=== PATIENT | female | born 1995 | race Caucasian/White ===

== ENCOUNTER 2019-03-26 04:17 | Inpatient (IN) | payer BC ==
[~2019-03-26] VITALS: Ht 177.8 cm; Wt 49.9 kg
--- NOTE | 2019-03-26 04:42 | NUR ---
BIB FAMILY S/P SYNCOPY AND FALL. WITH L FOREHEAD LACERATION W/ MINIMAL BLEEDING. NO PMH EXCEPT ANXIETY/ DEPRESSION. ASSISTED TO GET IN BED. VSS. PLACED ON A MONITOR, WILL CONT TO MONITOR ,
[2019-03-26] MEDS ORDERED: ONDANSETRON HCL/PF 4 MG/2 ML VIAL ONE ×2 (04:48→09:16)
--- NOTE | 2019-03-26 04:56 | NUR ---
20g iv started on LAC. blood drawn and sent to the lab. at the bed side
[2019-03-26 04:58] LABS: BASOPHILS # (AUTO) 0.1 /CMM (0.0-0.2); BASOPHILS % (AUTO) 0.2 % (0.0-2.0); EOSINOPHILS % (AUTO) 1.1 % (0.0-6.0); HEMATOCRIT 33 % (33-45); HEMOGLOBIN 10.8 g/dL (11.5-14.8); LYMPHOCYTES # (AUTO) 2.1 /CMM (0.8-4.8); LYMPHOCYTES % (AUTO) 8.7 % (20.0-44.0); MEAN CORPUSCULAR HGB CONC 33 g/dl (31.0-36.0); MEAN CORPUSCULAR VOLUME 91 fL (82-100); MONOCYTES # (AUTO) 1.1 /CMM (0.1-1.30); MONOCYTES % (AUTO) 4.7 % (2.0-12.0); NEUTROPHILS # (AUTO) 20.3 /CMM (1.8-8.9); NEUTROPHILS % (AUTO) 85.3 % (43.0-81.0); PLATELET COUNT (AUTO) 271 /CMM (150-450); WHITE BLOOD COUNT (AUTO) 23.9 K/uL (4.3-11.0)
[2019-03-26] MEDS ORDERED: TDAP [DIPH/PERTUSSIS/TET] 0.5 ML VIAL IM ONE ×2 (05:00→05:08)
[2019-03-26] MEDS ORDERED: ONDANSETRON HCL/PF 4 MG/2 ML VIAL IVP ONE ×2 (05:00→09:30)
[2019-03-26] MEDS ORDERED: IV NS 0.9% 1,000 ML BAG IV ONE ×2 (05:00→09:00)
[2019-03-26] MEDS ORDERED: CEFAZOLIN 1 GM in IV D5W 50 ML IV ONE (05:00)
[2019-03-26] MEDS ORDERED: CEFTRIAXONE 1 G VIAL ONE (05:01)
[2019-03-26] MEDS ORDERED: CEFTRIAXONE 1GM BAG (ER ONLY) 50 ML IV ONE (05:02)
[2019-03-26 05:04] LABS: CALCIUM, SERUM 9.2 mg/dL (8.5-10.1); CREATININE 0.9 mg/dL (0.6-1.3); POTASSIUM 3.7 mmol/L (3.5-5.1)
[2019-03-26 05:10] LABS: ALBUMIN 3.6 g/dL (3.4-5.0); BILIRUBIN,DIRECT 0.1 mg/dL (0.0-0.2); BILIRUBIN,TOTAL 0.5 mg/dL (0.2-1.0); TOTAL PROTEIN, SERUM 6.5 g/dL (6.4-8.2)
[2019-03-26] MEDS ORDERED: CEFTRIAXONE 1 G in IV D5W 50 ML IV ONE (05:30)
[2019-03-26] MEDS ORDERED: IV NS 0.9% 250 ML IV ONE (05:36)
[2019-03-26] MEDS ORDERED: CT SWABBABLE VALVE TRANS SET 1 EA INFUS.SET MC ONE (05:36)
[2019-03-26] MEDS ORDERED: IOHEXOL-300 100 ML VIAL IV ONE (05:36)
--- NOTE | 2019-03-26 05:49 | NUR ---
BACK FROM CT IN STABLE CONDITION
--- NOTE | 2019-03-26 06:55 | NUR ---
Patient is resting comfortably in . VSS. WILL CONT TO MONITOR ,
--- NOTE | 2019-03-26 07:03 | NUR ---
AT THE BED SIDE TALKING TO THE PT/ FAMILY
[2019-03-26] MEDS ORDERED: TRAZ-182 PO (08:29)
[2019-03-26] MEDS ORDERED: BUPR300T52 PO (08:29)
[2019-03-26] MEDS ORDERED: ESCI20TA PO (08:29)
--- NOTE | 2019-03-26 08:30 | NUR ---
PATIENT RESTING, MOM AT BEDSIDE, NO DISTRESS NOTED.
[2019-03-26 09:00] LABS: BASOPHILS % (AUTO) 0.3 % (0.0-2.0); EOSINOPHILS % (AUTO) 0.1 % (0.0-6.0); HEMATOCRIT 27 % (33-45); HEMOGLOBIN 9.2 g/dL (11.5-14.8); LYMPHOCYTES # (AUTO) 0.8 /CMM (0.8-4.8); LYMPHOCYTES % (AUTO) 7.6 % (20.0-44.0); MEAN CORPUSCULAR HGB CONC 34 g/dl (31.0-36.0); MEAN CORPUSCULAR VOLUME 90 fL (82-100); MONOCYTES # (AUTO) 0.4 /CMM (0.1-1.30); MONOCYTES % (AUTO) 3.6 % (2.0-12.0); NEUTROPHILS # (AUTO) 9.4 /CMM (1.8-8.9); NEUTROPHILS % (AUTO) 88.4 % (43.0-81.0); PLATELET COUNT (AUTO) 195 /CMM (150-450); RED BLOOD CELL COUNT(AUTO) 3.04 MIL/uL (4.0-5.2); WHITE BLOOD COUNT (AUTO) 10.7 K/uL (4.3-11.0)
--- NOTE | 2019-03-26 09:00 | NUR ---
Called [facility] at [phone] option 5, Spoke with Marco and requsted a transfer to patient's [facility]. Marco requested to fax Facesheet, ED Notes, Imaging, and Labs to [phone]. Faxed as requested with confirmation [id number] at 09:06am. Ref # [id number] 03/26/2019 09:00am Pending Call back from KARI
[2019-03-26] MEDS ORDERED: MORPHINE SULFATE INJ 4 MG/ML DISP.SYRIN ONE (09:16)
--- NOTE | 2019-03-26 09:29 | NUR ---
Called [facility] at [phone] and spoke with Sherwin. Sherwin transferred me ro the (didn't agree to give me their direct number). Left a message on a voice mail to Jaonn PIERCE to call me back.
[2019-03-26] MEDS ORDERED: MORPHINE SULFATE INJ 2 MG/ML DISP.SYRIN IV ONE (09:30)
--- NOTE | 2019-03-26 10:30 | NUR ---
Called transferred center at [facility] and spoke with House supervision Alyse at [phone] and requested a bed meanwhile waiting to the insurance CM to call me back. Requsted a Tele bed. Per Firefighting Equipment Specialist, they don't have any bed available and acceptance is subject to Insurance approval and acceptance physician. Faxed Facesheet and ED Notes to warehouse foreman at [phone]
--- NOTE | 2019-03-26 10:45 | NUR ---
PATIENT IN NAD, VSS, NEEDS ATTENDED AND MET, CALL LIGHT WITHIN REACH.
--- NOTE | 2019-03-26 11:05 | NUR ---
Called MCKENNA Desai CM workers' compensation claims supervisor, at [facility] to request approval for the transfer. Left a message
--- NOTE | 2019-03-26 11:25 | NUR ---
Received a call back from Alyse, commercial housekeeper at [facility]. She reviewed clinicals and she will give it to one of he CM. No bed is available yet but patient is on the list. Still Pending insurance approval for the transfer
--- NOTE | 2019-03-26 11:45 | NUR ---
Received a call nack from MCKENNA Desai CM ward supervisor at [phone]. Per Lloyd, he is approving the transfer to [facility]. He will call the Nurse Stock Preparer at [place]. EVELIO initiated and pending a call back to JOSÉ ANTONIO Hill MD.
--- NOTE | 2019-03-26 11:50 | NUR ---
Dr. Hodge made aware of the plan. Pending MD2MD
--- NOTE | 2019-03-26 11:58 | NUR ---
Called Nursing Vaccine Key Customer Leader at [facility] @ [phone], I advised her that Lloyd, IP CM Vaccine Key Customer Leader at [facility], will call her for the authorization and bed. I provided the nurse medical transcription supervisor with Lloyd direct number and asked her to call me if she doesn't hear back from him in the next 30 min
--- NOTE | 2019-03-26 12:46 | NUR ---
DR. WAN SPOKE WITH ACCEPTING MD AT [facility], DR. LUO.
--- NOTE | 2019-03-26 12:56 | NUR ---
Received a call from MCKENNA Desai CM at [facility]. EVELIO Completed - Per DR. LUO, patient is not stable to be transferred. Spoke with Dr Wan to admit the patient. DR WAN and I spoke with the patient and the patient's mom at bedside and both agreed to be admitted.
[2019-03-26 13:01] LABS: BASOPHILS % (AUTO) 0.4 % (0.0-2.0); EOSINOPHILS % (AUTO) 0.6 % (0.0-6.0); HEMATOCRIT 26 % (33-45); HEMOGLOBIN 8.7 g/dL (11.5-14.8); LYMPHOCYTES # (AUTO) 1.9 /CMM (0.8-4.8); LYMPHOCYTES % (AUTO) 18.9 % (20.0-44.0); MEAN CORPUSCULAR HGB CONC 34 g/dl (31.0-36.0); MEAN CORPUSCULAR VOLUME 90 fL (82-100); MONOCYTES # (AUTO) 0.8 /CMM (0.1-1.30); MONOCYTES % (AUTO) 7.9 % (2.0-12.0); NEUTROPHILS # (AUTO) 7.4 /CMM (1.8-8.9); NEUTROPHILS % (AUTO) 72.2 % (43.0-81.0); PLATELET COUNT (AUTO) 198 /CMM (150-450); RED BLOOD CELL COUNT(AUTO) 2.89 MIL/uL (4.0-5.2); WHITE BLOOD COUNT (AUTO) 10.3 K/uL (4.3-11.0)
--- NOTE | 2019-03-26 13:55 | NUR ---
us tech at bedside.
[2019-03-26] MEDS ORDERED: LIDOCAINE 2%-EPI 1:100,000 30 ML VIAL ONE (13:57)
[2019-03-26] MEDS ORDERED: LIDOCAINE 2%-EPI 1:100,000 30 ML VIAL TP ONE (14:00)
--- NOTE | 2019-03-26 14:00 | NUR ---
PATIENT SEEN BY BILLY EDWARD FROM [facility] FOR EVAL, PLANNING TO DO SUTURE.
--- NOTE | 2019-03-26 14:06 | NUR ---
[facility] PAGED KEVON AYALA DNP FOR ADMIT
--- NOTE | 2019-03-26 14:34 | NUR ---
REPORT GIVEN TO QUOC REYES.
--- NOTE | 2019-03-26 14:50 | NUR ---
BILLY TUTTLE, CURRENTLY DOING SUTURES ON FOREHEAD LACERATION AT THIS TIME.
--- NOTE | 2019-03-26 15:51 | NUR ---
PATIENT TRANSFERRED TO ROOM 316-2 VIA ACLS PROTOCOL. PATIENT IN STABLE CONDITION, ENDORSED TO QUOC REYES. SUTURE INTACT ON FOREHEAD.
[2019-03-26 16:00] VITALS: BP 122/80
[2019-03-26] MEDS ORDERED: IV D5 LR 1,000 ML IV PRN (16:30)
[2019-03-26] MEDS ORDERED: ACETAMINOPHEN 325 MG TABLET PO PRN (16:30)
[2019-03-26] MEDS ORDERED: DEXTROSE 50%-WATER 50 ML DISP.SYRIN IV PRN (16:30)
[2019-03-26] MEDS ORDERED: Z GUARD REMEDY 2 OZ OINT TP PRN (16:30)
[2019-03-26] MEDS ORDERED: LORAZEPAM INJ 2 MG/ML VIAL IV PRN (16:30)
[2019-03-26] MEDS ORDERED: MORPHINE SULFATE INJ 2 MG/ML DISP.SYRIN IV PRN (16:30)
[2019-03-26] MEDS ORDERED: ONDANSETRON HCL/PF 4 MG/2 ML VIAL IVP PRN (16:30)
[2019-03-26] MEDS ORDERED: INSULIN REGULAR, HUMAN 100 UNIT/ML 3 ML VIAL SQ PRN (16:30)
[2019-03-26] MEDS ORDERED: NEOMY SULF/BACITRAC ZN/POLY 15 GM TUBE TP SCH (17:00)
[2019-03-26] MEDS ORDERED: BLOOD SUGAR DIAGNOSTIC 1 EACH STRIP IN SCH (18:00)
[2019-03-26] MEDS ORDERED: METRONIDAZOLE 500MG/ NS 100ML 500 MG in PREMIX 1 EA IV SCH (18:00)
--- NOTE | 2019-03-26 19:30 | NUR ---
MECHANICAL DOOR REPAIRER NOTES PATIENT IN BED RESTING NO SOB OR ACUTE DISTRESS NOTED. PATIENT ALERT, ORIENTED X4. PATIENT WAS SEEN BY DR. ORTIZ AND WAS CLEARED TO BE DISCHARGED HOME WITH FOLLOW UP WITH SUPERVISOR DITCHING. PATIENT DENIES PAIN, NAUSEA. DR. IQBAL NOTIFIED OF DR BOLDEN RECOMMENDATION AND PATIENTS REQUEST TO BE DISCHARGED TODAY, STATES HE WILL DISCHARGE PATIENT ONCE HE HAS THE OPPORTUNITY. PATIENT NOTIFIED OF THE PLAN. AWAITING TO BE DISCHARGED. ENDORSED CARE TO PM SHIFT.
--- NOTE | 2019-03-26 19:47 | NUR ---
DISCHARGE/AMA NOTE PT LEFT HOSPITAL IN PRIVATE VEHICLE. LEFT AMA. PT WAS AWARE THAT MD WAS TO DISCHARGE THIS EVENING, HOWEVER THE PT DECIDED THAT THEY DID NOT WANT TO STAY. IV ACCESS REMOVED. DISCHARGE HANDOUT WITH CONSULTS/LABS/MED REPORT/H&P AND DISCHARGE TEACHING GIVEN TO PT. BELONGINGS SHEET AND AMA FORM SIGNED/COPIED PLACED IN CHART. PT LEFT HOSPITAL IN PRIVATE VEHICLE WITH MOTHER.
[2019-03-26 20:28] LABS: BASOPHILS % (AUTO) 0.4 % (0.0-2.0); EOSINOPHILS % (AUTO) 1.2 % (0.0-6.0); HEMATOCRIT 28 % (33-45); HEMOGLOBIN 9.4 g/dL (11.5-14.8); LYMPHOCYTES # (AUTO) 2.2 /CMM (0.8-4.8); LYMPHOCYTES % (AUTO) 20.3 % (20.0-44.0); MEAN CORPUSCULAR HGB CONC 34 g/dl (31.0-36.0); MEAN CORPUSCULAR VOLUME 90 fL (82-100); MONOCYTES # (AUTO) 0.9 /CMM (0.1-1.30); MONOCYTES % (AUTO) 8.5 % (2.0-12.0); NEUTROPHILS # (AUTO) 7.5 /CMM (1.8-8.9); NEUTROPHILS % (AUTO) 69.6 % (43.0-81.0); PLATELET COUNT (AUTO) 215 /CMM (150-450); RED BLOOD CELL COUNT(AUTO) 3.08 MIL/uL (4.0-5.2); WHITE BLOOD COUNT (AUTO) 10.7 K/uL (4.3-11.0)
[2019-03-26] MEDS ORDERED: CIPROFLOXACIN IV RTU 400 MG in PREMIX 1 EA IV SCH (21:00)
== END 2019-03-26 19:45 | disposition left against medical advice (07) | DRG 749 ==
LOC: ER 04:23 → TELE 15:21 → MED 16:29
PROVIDERS: ADMIT Hospitalist; ATTEND Hospitalist
PROC: 0JB10ZZ Excision of Face Subcutaneous Tissue and Fascia, Open Approach (ICD-10-PCS; principal; 2019-03-26)
PROC: 0HX1XZZ Transfer Face Skin, External Approach (ICD-10-PCS; principal; 2019-03-26)
DX: N83.291 Other ovarian cyst, right side (principal); Z68.1 Body mass index [BMI] 19.9 or less, adult; R55 Syncope and collapse; R63.6 Underweight; D64.9 Anemia, unspecified; F41.9 Anxiety disorder, unspecified; S01.81XA Laceration without foreign body of other part of head, initial encounter; X58.XXXA Exposure to other specified factors, initial encounter; Y93.9 Activity, unspecified; Y92.009 Unspecified place in unspecified non-institutional (private) residence as the place of occurrence of the external cause
CPT/HCPCS: 36415; 76705-TC; 76856-TC; 80048-TC; 80076-TC; 82962-TC; 84702-TC; 85025-TC; 85730-TC; 87081-TC; 90715; A4216; A6402; A6403; G0378; J0690; J0696; J0744; J1815; J2270; J2405; J3490; J7030; J7050; J7060; Q9967